=== PATIENT | female | born 1955 | race Caucasian/White ===

== ENCOUNTER 2022-03-03 10:34 | Emergency (ER) | payer MEDICARE, SELFPAY ==
--- NOTE | ~2022-03-03 | XR_ITS ---
Left thumb Technique: PA, oblique, and lateral views were obtained. Clinical History: Pain, injury Findings: No acute fracture or dislocation is seen. Osseous alignment is anatomic. Mild degenerative change of the first CMC joint noted. Soft tissues are unremarkable. Impression: No fracture or dislocation. Mild degenerative change of the first CMC joint. Reviewed, dictated and finalized at [facility]. [employer] Impression: No fracture or dislocation. Mild degenerative change of the first CMC joint.
--- NOTE | 2022-03-03 10:39 | ED.UPPEXIN ---
HPI - Extremity Injury (Upper) General Chief Complaint: Extremity Injury, Upper Stated Complaint: lt hand injury Time Seen by Provider: 03/03/22 10:38 Source: patient Mode of arrival: ambulatory Limitations: no limitations History of Present Illness HPI narrative: Yris is a 67-year-old female patient presenting to clinic today with complaints of left hand injury that occurred 6 days ago. She reports that she was sitting on a stool and the stool when out from under her on the porch and her hand went in between the stool causing her left thumb to hyperextend. She reports she has has pain to the palmar aspect of the thumb as well as the thumb joint. There is obvious old bruising and swelling noted Related Data Home Medications Medication Instructions Recorded Confirmed losartan 50 mg tablet 50 mg PO DAILY 03/03/22 03/03/22 omeprazole 20 mg capsule,delayed 20 mg PO DAILY 03/03/22 03/03/22 release rosuvastatin 10 mg tablet 10 mg PO HS 03/03/22 03/03/22 Allergies Allergy/AdvReac Type Severity Reaction Status Date / Time No Known Allergies Allergy Verified 03/03/22 10:59 Review of Systems Review of Systems: Pertinent positives per HPI. Patient denies any fever, chills, rash, headache, visual changes, dizziness, cough, runny nose, sore throat, shortness of breath, chest pain, palpitations, nausea, vomiting, diarrhea, constipation, abdominal pain, or any urinary issues. PMFSH Comments At the time of my signature, I reviewed and agree with the nursing past medical, surgical, social, and family history. There is no relevant family history pertinent to the patient complaint. Exam Narrative: General: Well-developed, obese, in no apparent distress Head: Normocephalic, atraumatic. Cardio: Regular rate and rhythm, s1 and s2 normal, no murmur appreciated. Resp: Clear to auscultation bilaterally, no rhonchi, rales, wheezing or rubs. Musculoskeletal: No deformity, bruising and swelling noted over the palmar aspect of the left thumb and within the thumb joints, pain with extension and flexion of the left thumb against resistance, tender to palpation, grossly normal range of motion, muscle strength strong and equal, peripheral pulse strong, no edema, no cyanosis, normal gait and station Course Course Emergency Course: Portions of this record may have been created with voice recognition software. Level of Care: Express Care Visit Vital Signs Vital signs: Vital signs reviewed MDM - Extremity Injury (Upper) MDM Narrative Medical decision making narrative: At the time of visit patient is resting comfortably on exam table. X-rays negative for any fracture or malalignment of the left thumb. 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 I suspect patient has a thumb sprain. Supportive measures were discussed with the patient she voiced understanding of discharge instructions and agrees to treatment plan. Imaging Data Radiologist's impression: [address] [address] XRay Report Signed Patient: Yris Holm : 1955 MR#: [id number] Age/Sex: 67 / F Acct:[id number] Loc: [facility]? ? ADM Date: 03/03/22Attending Dr: Ordering Physician: Higinio Clay APRN Date of Service: 03/03/22 Procedure(s): XR finger 1st LT min 2V Accession Number(s): [id number] cc: Roque, Amy ANNE-C; Higinio Clay APRN~ Left thumb Technique: PA, oblique, and lateral views were obtained. Clinical History: Pain, injury Findings: No acute fracture or dislocation is seen. Osseous alignment is anatomic. Mild degenerative change of the first CMC joint noted. Soft tissues are unremarkable. Impression: No fracture or dislocation. Mild degenerative change of the first CMC joint. Reviewed, dictated and finalized at location . Electronically signed by Emile Nunn
[2022-03-03 10:50] VITALS: BP 143/81; PULSE 109; RESP 18; TEMP 36.6; O2SAT 99
== END 2022-03-03 11:19 | disposition home or self-care (01) ==
PROVIDERS: Emergency Provider Nurse Practitioner Family; PCP Nurse Practitioner
DX: S63.642A Sprain of metacarpophalangeal joint of left thumb, initial encounter (principal); W17.89XA Other fall from one level to another, initial encounter; M18.12 Unilateral primary osteoarthritis of first carpometacarpal joint, left hand; E78.00 Pure hypercholesterolemia, unspecified; I10 Essential (primary) hypertension
CPT/HCPCS: 73140; 99213; G0463